=== PATIENT | female | born 1975 | race Caucasian/White ===

== ENCOUNTER 2019-07-27 06:06 | Day surgery (SDC) | payer OTHER, SELFPAY ==
[2019-07-25 11:45] VITALS: BMI 38.2
[2019-07-27] VITALS (11 sets, daily range): BP systolic 104–129; BP diastolic 41–81; PULSE 54–82; RESP 10–20; TEMP 36.2–36.7; O2SAT 93–99; BMI 36.5
[2019-07-27] MEDS: LACTATED RINGERS 1,000 ML 42 ML IV ×2 (07:15→08:45)
--- NOTE | 2019-07-27 07:25 | PM.PREOP ---
Pre-operative Note Interval Note History & Physical reviewed/Exam performed by Physician: Yes Changes to H&P: No
--- NOTE | 2019-07-27 07:25 | PM.OP.1 ---
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 Other procedures may be performed depending on intraoperative findings. The nature of the procedure including the risks and benefits, alternatives, postoperative course and expected outcome were discussed and all questions answered. Consent was obtained. Operative site confirmed and marked. Surgeon: Blane Bolton Software Configuration Analyst: Pawan Mansfield Anesthesia Type: General, Peripheral nerve block and Local Operative Notes Findings: The patient had complete rupture of the anterior cruciate ligament. There was a 12 mm diameter area of grade 3 bordering on grade 4 chondromalacia of the weight-bearing surface of lateral femoral condyle. The cartilage is otherwise stable and no chondroplasty was performed. The lateral meniscus was intact and stable to probing. The medial compartment was pristine with no chondral defects and the meniscus was intact visually and to probing. There was some tilting of the patella through motion. There is significant chondromalacia of the patellofemoral joint with focal grade 3-4 chondromalacia on the central patella and widespread grade 3-4 chondromalacia on the trochlear groove. Just a minimal chondroplasty was performed over the patella where there was some loose cartilage. No loose bodies were identified. The ACL reconstruction was performed as noted below with a 9 mm allograft. The graft was placed in anatomic position and was stable to Eliel's and pivot shift. Closure Type: primary Specimen(s): none sent Prosthetic devices, grafts, tissues, transplants, or devices: Arthrex tight rope femoral implant and PEEK interference screw, 10 mm. Applied: implant(s) Estimated Blood Loss (mL): 5 Blood products transfused: none Tourniquet time (min): 65 Procedure in detail: The patient was taken operative suite and placed under general anesthesia. She was CV femoral nerve block prior to surgery. She received prophylactic antibiotics prior to surgery. The leg was then prepped and draped in usual sterile fashion. The leg was exsanguinated with Esmarch dressing and tourniquet raised to 250 torr. Medial lateral parapatellar incisions were made and a diagnostic arthroscopy was performed. There was complete rupture of the ACL and significant chondromalacia of the patellofemoral and lateral compartment as noted above. There was no significant meniscal tearing. The allograft was thawed on the back table and grasping sutures placed in each end. The doubled allograft was 9 mm in diameter on both the femoral and tibial side. An Arthrex flip cutter was placed into the anatomic footprint of the ACL on the femoral side. The flip cutter was opened to 9 mm and a 25 mm socket was drilled in a retrograde fashion. Next the tibial guide was placed and a guidewire placed into the center of the anatomic tibial footprint. A full socket was then drilled with a 9 mm solid reamer. The ACL graft was then placed through the tunnels and the tight rope button flipped. The button was stressed to ensure it fully engaged on the cortex. The graft was then pulled up into the femoral socket. The knee was then ranged through flexion extension with tension on the graft. The graft was then stabilized on the tibial side with an Arthrex peek interference screw. The screw had excellent purchase in the bone. The graft was then probed and had good tension. The knee was stable to Eliel's and posterior drawer. The ends of the graft were cut. The wounds were then closed with 2 O and 3 O Vicryl and surgical adhesive. Sterile gauze dressings and Long wrap were applied. The patient was then placed into a hinged knee brace. Complications: none Post-operative Condition: stable Disposition: same day surgery Plan for aftercare: Patient will be discharged to home for same-day surgery protocol. She will use a brace for protection when ambulating. She will otherwise start [id number] exercises immediately and physical therapy within the week. Clinic follow-up in 2 weeks.
[2019-07-27] MEDS: SCOPOLAMINE 1 PATCH TOP (07:42)
[2019-07-27] MEDS: APREPITANT 40 MG CAPSULE PO (07:42)
[2019-07-27] MEDS: CEFAZOLIN 2 GM/100 ML FROZ.PIGGY IV (08:00)
--- NOTE | 2019-07-27 08:01 | SUR.PREOP ---
Block start time [0749] . Monitoring initiated and maintained throughout procedure. Oxygen and medications given per anesthesiologist instructions. Patient remained stable throughout procedure, no adverse reactions noted. Block end time [0754].
[2019-07-27] MEDS: LIDOCAINE 1% W/EPI 20 ML INJ (08:30)
--- NOTE | 2019-07-27 08:38 | SUR.OPER ---
Supine on padded OR bed, head on pillow, arms secured on padded arm boards at <90 degrees abduction, legs uncrossed, safety belt at abdomen, tape over blanket over right lower legs, left lower leg on sterile field.
--- NOTE | 2019-07-27 08:50 | PM.PROC.1 ---
Procedures Date/Time Date of procedure: 07/27/19 Time of procedure: 07:45 General Procedure description: Ultrasound guided femoral nerve block for post op pain control after Left knee ACL repair by Dr. Bolton. Risk and benefits of procedure discussed with patient. ASA monitoring applied to patient. O2 given via nasal cannula. 2 mg Versed and 150 mcg fentanyl given for procedural sedation. Left inguinal skin site was prepped with chlorhexidine and allowed to fully dry. Sterile gloves, mask, hat and probe cover were used to maintain sterility. 2% lidocaine and 30ga needle was used to make a small skin wheal at needle insertion site. Under ultrasound guidance, a 21ga 100mm Pajunk needle was directed lateral to the femoral artery in the left inguinal crease. An Electrical Stim pulse of 0.2mV was applied to needle tip to confirm placement near nerve. Quadricepts contraction observed. After negative aspiration, 20 mL 0.5% ropivicaine and 10mg dexamethasone were injected around femoral nerve. Patient reports slight tingling sensation on left medial wolf that resolved with needle repositioning. Patient tolerated procedure well.
[2019-07-27] MEDS: ROPIVACAINE 0.2% PF 2 MG/ML 10ML AMP 10 ML INJ (08:54)
[2019-07-27] MEDS: MORPHINE 4 MG/ML INJ INJ (08:56)
[2019-07-27] MEDS: SODIUM CHLORIDE IRRIG SOLUTION 3,000 ML 3000 ML IRR (09:09)
[2019-07-27] MEDS: ONDANSETRON 4 MG/2 ML INJ IV (09:50)
[2019-07-27] MEDS: fentaNYL 100 MCG/2 ML INJ IV ×2 (09:52→09:58)
[2019-07-27] MEDS: METOCLOPRAMIDE 10 MG/2 ML INJ IV (10:01)
--- NOTE | 2019-07-27 10:06 | SUR.PHASEI ---
Patient reported pain improving and nausea resolved.
[2019-07-27] MEDS: KETOROLAC 30 MG/ML VIAL IV (10:16)
[2019-07-27] MEDS: OXYCODONE IR 5 MG TABLET PO (11:00)
--- NOTE | 2019-07-27 11:13 | SUR.PHASEII ---
Patient eating crackers and taking PO without difficulty. All paperwork provided to patient and spouse. No needs voiced at discharge.
--- NOTE | 2019-07-27 11:20 | SUR.PHASEII ---
Repeat of blood pressure 106/48. Patient asymptomatic and states that her Bp usually runs on the lower end. Home with . To vehicle via wheelchair.
== END 2019-07-27 11:21 | disposition home or self-care (01) ==
PROVIDERS: PCP Internal Medicine; Visit Provider Orthopaedic Surgery
PROC: (CPT 29888; principal; 2019-07-27 07:45)
DX: S83.512A Sprain of anterior cruciate ligament of left knee, initial encounter (principal); G89.18 Other acute postprocedural pain; E66.9 Obesity, unspecified; M25.862 Other specified joint disorders, left knee; W10.9XXA Fall (on) (from) unspecified stairs and steps, initial encounter; M94.262 Chondromalacia, left knee
CPT/HCPCS: 29888; 64447; 64450; J0690; J1100; J1885; J2250; J2270; J2405; J2704; J2765; J2795; J3010; J8501